=== PATIENT | female | born 1950 | race Caucasian/White ===

== ENCOUNTER → 2017-09-12 | Outpatient (CLI) | payer MEDICARE, OTHER ==
[~2017-09-12] MED LIST: ASPI-1471 PO; ATOR20TA65 PO; AZI250 PO; B12 IM; BIOT5CAP PO; BLOO-1318 MC; BLOO-1337 MC; CEF300 PO; CHOL10005 PO; CLO5 PO; CLON-298 PO; CYA1000I IM; CYAN1000 IJ; CYAN1000 IM; CYMBALTA PO; DOCU-299 PO; DOCU250C8 PO; ENA5 PO; EZET1TAB55 PO; EZET1TAB64 PO; FLU IM; FLU20 PO; FLU45SYR17 IM; FLU45SYR25 IM ONLY; FLU60SYR30 IM ONLY; FLUO20TA2 PO; GLIM1TAB25 PO; GLIM2TAB43 PO; GUAR1TAB15 PO; LANC-1149 MC; LEV100 PO; LEVO-3 PO; LEVO-317 PO; LISI-362 PO; METF-420 PO; METO-253 PO; METO25TA23 PO; METO25TA93 PO; MULT-27 PO; MULT-820 PO; MULT1CAP41 PO; OMEP-137 PO; OMEP-218 PO; OMEP40CA45 PO; OXYC-373 PO; OXYC-830 PO; OXYC1TAB7 PO; OXYC20TA86 PO; OXYGENHOME INH; PER PO; POLY17PO25 PO; QUET25TA PO; RANI-318 PO; WARF-12 PO; ZINC30TA5 PO; ZOLP-350 PO; ZOLP-360 PO
[2017-09-12 11:05] LABS: LDL CHOLESTEROL 92 mg/dl
== END ==
LOC: LAB 08:48
PROVIDERS: ATTEND Internal Medicine
DX: E11.9 Type 2 diabetes mellitus without complications (principal); I10 Essential (primary) hypertension; E78.2 Mixed hyperlipidemia
CPT/HCPCS: 36415; 82040; 82247; 82310; 82374; 82435; 82465; 82565; 82947; 83036; 83718; 84075; 84132; 84155; 84295; 84450; 84460; 84478; 84520

== ENCOUNTER → 2017-12-18 | Outpatient (CLI) | payer MEDICARE, OTHER ==
[2017-12-18 11:29] LABS: LDL CHOLESTEROL 88 mg/dl
== END ==
LOC: LAB 10:31
PROVIDERS: ATTEND Internal Medicine
DX: E11.9 Type 2 diabetes mellitus without complications (principal); I10 Essential (primary) hypertension; E78.2 Mixed hyperlipidemia; E03.9 Hypothyroidism, unspecified
CPT/HCPCS: 36415; 82040; 82247; 82310; 82374; 82435; 82465; 82565; 82947; 83036; 83718; 84075; 84132; 84155; 84295; 84443; 84450; 84460; 84478; 84520

== ENCOUNTER → 2018-02-24 | Outpatient (CLI) | payer MEDICARE, OTHER ==
[~2018-02-24] MED LIST changes: +METF-421 PO
--- NOTE | 2018-02-24 17:00 | RADIOLOGY IMAGING REPORT ---
FACILITY: [facility] - [place] PATIENT NAME: MAGI GRIJALVA : [id number] MR: [id number] V: [id number] EXAM DATE: ORDERING PHYSICIAN: VAMSI MIMS TECHNOLOGIST: Tish Burton PROCEDURE:BILATERAL DIGITAL SCREENING MAMMOGRAM WITH CAD ASSISTED INTERPRETATION & 3D TOMOSYNTHESIS COMPARISON:Prior mammograms 02/21/17. INDICATIONS:screening FINDINGS: A small amount of fibroglandular tissue is seen throughout the breasts. The parenchymal pattern has remained stable allowing for difference in mammographic technique & patient positioning. There is no evidence of malignant appearing mass, malignant appearing calcifications or other secondary sign of malignancy in either breast. DIAGNOSTIC CATEGORY 1--NEGATIVE. RECOMMENDATIONS: ROUTINE MAMMOGRAM AND CLINICAL EVALUATION. IMPRESSION: BIRADS 1: Negative. No significant abnormality is seen. Dictated by: Cesia Vasques M.D. on 02/24/2018 at 16:11 Transcribed by: PAULO on 02/24/2018 at 16:14 Approved by: Cesia Vasques M.D. on 02/24/2018 at 16:59 [facility]
== END ==
LOC: MAMO 01:34
PROVIDERS: ATTEND Internal Medicine
DX: Z12.31 Encounter for screening mammogram for malignant neoplasm of breast (principal)
CPT/HCPCS: 77063; 77067

== ENCOUNTER → 2018-03-18 | Outpatient (CLI) | payer MEDICARE, OTHER ==
[~2018-03-18] MED LIST changes: -CLON-298 PO; +CLON-331 PO
[2018-03-18 09:30] LABS: LDL CHOLESTEROL 104 mg/dl
== END ==
LOC: LAB 08:54
PROVIDERS: ATTEND Internal Medicine
DX: E03.9 Hypothyroidism, unspecified (principal); E78.2 Mixed hyperlipidemia; I10 Essential (primary) hypertension; E11.65 Type 2 diabetes mellitus with hyperglycemia
CPT/HCPCS: 36415; 82040; 82247; 82310; 82374; 82435; 82465; 82565; 82947; 83036; 83718; 84075; 84132; 84155; 84295; 84443; 84450; 84460; 84478; 84520

== ENCOUNTER → 2018-09-08 | Outpatient (CLI) | payer MEDICARE, OTHER ==
[~2018-09-08] MED LIST changes: +DULO30CA35 PO; +DULO60CA56 PO; +FLU180SY11 IM; +FLUO10TA24 PO; -METF-421 PO; +METF-452 PO
== END ==
LOC: LAB 08:40
PROVIDERS: ATTEND Internal Medicine
DX: Z02.6 Encounter for examination for insurance purposes (principal); G89.4 Chronic pain syndrome

== ENCOUNTER → 2018-09-30 | Outpatient (CLI) | payer MEDICARE, OTHER ==
[~2018-09-30] MED LIST changes: +BLOO-1775 MC
[2018-09-30 10:06] LABS: LDL CHOLESTEROL 70 mg/dl
== END ==
LOC: LAB 09:23
PROVIDERS: ATTEND Internal Medicine
DX: E11.65 Type 2 diabetes mellitus with hyperglycemia (principal); E78.2 Mixed hyperlipidemia; I10 Essential (primary) hypertension; E03.9 Hypothyroidism, unspecified
CPT/HCPCS: 36415; 82040; 82247; 82310; 82374; 82435; 82465; 82565; 82947; 83036; 83718; 84075; 84132; 84155; 84295; 84443; 84450; 84460; 84478; 84520

== ENCOUNTER → 2018-10-21 | Outpatient (CLI) | payer MEDICARE, OTHER ==
[~2018-10-21] MED LIST changes: +DOCU100T13 PO; +METO50TA19 PO; +ZINC50TA43 PO
--- NOTE | 2018-10-21 10:46 | EKG ---
FACILITY: [facility] - [place] PATIENT NAME: MAGI GRIJALVA : [id number] MR: [id number] V: [id number] EXAM DATE: ORDERING PHYSICIAN: JERED HOLBROOK TECHNOLOGIST: HARRY Fields Reason : TACHYCARDIA Blood Pressure : / mmHG Vent. Rate : 125 BPM Atrial Rate : 125 BPM P-R Int : 134 ms QRS Dur : 072 ms QT Int : 294 ms P-R-T Axes : 061 043 056 degrees QTc Int : 424 ms Sinus tachycardia Otherwise normal ECG When compared with ECG of 03-DEC-2016 11:32, Previous ECG has undetermined rhythm, needs review Referred By: PABLITO Confirmed By:
== END ==
LOC: RESP 10:26
PROVIDERS: ATTEND Internal Medicine
DX: Z02.9 Encounter for administrative examinations, unspecified (principal)

== ENCOUNTER → 2018-11-26 | Outpatient (CLI) | payer MEDICARE, OTHER ==
[2018-11-26 11:38] LABS: PLATELET COUNT, AUTOMATED 232 K/uL (150-450)
[2018-11-26 12:01] LABS: LDL CHOLESTEROL 79 mg/dl
== END ==
LOC: LAB 10:48
PROVIDERS: ATTEND Internal Medicine
DX: E03.9 Hypothyroidism, unspecified (principal); G89.4 Chronic pain syndrome; F33.2 Major depressive disorder, recurrent severe without psychotic features; I10 Essential (primary) hypertension; E66.2 Morbid (severe) obesity with alveolar hypoventilation; E78.2 Mixed hyperlipidemia; E66.9 Obesity, unspecified; E11.65 Type 2 diabetes mellitus with hyperglycemia; Z98.84 Bariatric surgery status
CPT/HCPCS: 36415; 81001; 82040; 82043; 82247; 82310; 82374; 82435; 82465; 82565; 82607; 82746; 82947; 83036; 83718; 84075; 84132; 84155; 84295; 84439; 84443; 84450; 84460; 84478; 84520; 85025

== ENCOUNTER → 2019-03-16 | Outpatient (CLI) | payer MEDICARE, OTHER ==
[~2019-03-16] MED LIST changes: +FLUO40CA67 PO; +GABA-547 PO; +GABA-549 PO; +LEVO88TA45 PO
[2019-03-16 09:04] LABS: PLATELET COUNT, AUTOMATED 210 K/uL (150-450)
[2019-03-16 10:14] LABS: LDL CHOLESTEROL 64 mg/dl
== END ==
LOC: LAB 08:35
PROVIDERS: ATTEND Internal Medicine
DX: E03.9 Hypothyroidism, unspecified (principal); E11.9 Type 2 diabetes mellitus without complications; G47.9 Sleep disorder, unspecified; E78.2 Mixed hyperlipidemia; I10 Essential (primary) hypertension; Z98.84 Bariatric surgery status
CPT/HCPCS: 36415; 81001; 82040; 82247; 82310; 82374; 82435; 82465; 82565; 82947; 83036; 83718; 84075; 84132; 84155; 84295; 84443; 84450; 84460; 84478; 84520; 85025